=== PATIENT | male | born 1985 | race Caucasian/White ===

== ENCOUNTER 2016-06-10 15:55 | Emergency (ER) | payer OTHER ==
[~2016-06-10] VITALS: Ht 177.8 cm; Wt 103.0 kg
[~2016-06-10 15:55] MED LIST: ADVIN25/60 INH; ALBUAER19 INH
[2016-06-10 15:58] VITALS: Ht 177.8 cm; Wt 103.0 kg
[2016-06-10] MEDS ORDERED: ALBUT/IPRATROP 3MG/0.5MG NEB 3 ML VIAL INH STA (16:08)
[2016-06-10] MEDS ORDERED: DEXAMETHASONE SOD INJ 10 MG/ML VIAL IV ONE (16:15)
[2016-06-10] MEDS ORDERED: TPRSR/25 PO (16:25)
[2016-06-10] MEDS ORDERED: TRAZ100T29 PO (16:25)
[2016-06-10] MEDS ORDERED: VNTHFA/IN INH ×2 (16:26→18:09)
[2016-06-10] MEDS ORDERED: PRZ/40 PO (16:26)
[2016-06-10] MEDS ORDERED: MOME100A INH (16:26)
[2016-06-10] MEDS ORDERED: NRN600 PO (16:26)
[2016-06-10 16:32] LABS: BASO % 0.1 %; BASO ABS # 0.02 K/uL (0-0.2); COMPLETE YES; HEMATOCRIT 37.3 % (42-52); IG% 0.2 %; LYMPH % 10.8 %; LYMPH ABS # 1.57 K/uL (1.2-3.4); MEAN CORPUSCULAR HEMOGLOBIN 29.1 pg (25-34); MEAN CORPUSCULAR HGB CONC 34.6 g/dl (32-36); MEAN PLATELET VOLUME 10.2 fL (7.4-10.4); MONO % 5.7 %; NEUT % 80.2 %; PLATELET COUNT 185 K/uL (130-400); RED BLOOD COUNT 4.44 M/uL (4.7-6.1); WHITE BLOOD COUNT 14.52 K/uL (4.8-10.8)
[2016-06-10] MEDS ORDERED: ACETAMINOPHEN 500 MG TAB PO STA (16:37)
[2016-06-10 16:54] LABS: BUN/CREATININE RATIO 5.8 (10-20); CALCIUM 8.6 mg/dl (8.5-10.1); POTASSIUM 3.7 mmol/L (3.5-5.1)
[2016-06-10 17:35] VITALS: TEMP 37.9
--- NOTE | 2016-06-10 17:59 | DIAGNOSTIC IMAGING REPORT ---
CT ANGIOGRAM OF THE CHEST CLINICAL HISTORY: Cough and dyspnea. COMPARISON STUDY: Chest x-ray dated 05/12/2013. TECHNIQUE: Following the IV administration of 112 cc of Optiray 320, CT angiogram of the chest was performed from the upper abdomen to the thoracic inlet utilizing the pulmonary embolus protocol. Images are reviewed in the axial, sagittal, and coronal planes. 3-D MIPS images are created and assessed. The IV malfunctioned during the contrast injection. CT DOSE: 558.96 mGy.cm FINDINGS: Thyroid: Imaged portions of the thyroid gland are normal in size and attenuation. Thoracic aorta: The thoracic aorta is normal in caliber and demonstrates standard 3-vessel arch anatomy. No dissection is seen. Pulmonary vasculature: The pulmonary trunk is normal in caliber. There are no filling defects identified in main, lobar, or segmental pulmonary branches to suggest pulmonary embolus. Heart: The heart is normal in size and configuration, and without pericardial effusion. Lungs and pleural spaces: There is patchy groundglass consolidation seen throughout both lungs. No pleural effusion is identified. The trachea and central airways are clear. Mediastinum: There are prominent mediastinal lymph nodes. A pretracheal node measures 10 mm in short axis as seen on image #235. Estephania: There is hilar lymphadenopathy. Enlarged hilar nodes measure up to 14 mm in short axis. Axillae: There is no axillary lymphadenopathy. Upper abdomen: Partially visualized upper abdominal viscera is within normal limits. Skeletal structures: No lytic or blastic bony lesions are seen. IMPRESSION: 1. There is no evidence of pulmonary embolus in the main, lobar, or segmental pulmonary arteries. 2. There is patchy groundglass consolidation seen throughout both lungs. The appearance is nonspecific, and likely represents an infectious/inflammatory pneumonitis. Clinical correlation will be required. 3. Hilar adenopathy is likely on a reactive basis. 4. No pleural effusion is identified. Electronically signed by: Austin Bello M.D. 06/10/2016 5:58 PM Dictated Date/Time: 06/10/2016 5:53 PM
[2016-06-10] MEDS ORDERED: OPTIRAY 320 IV PRN (18:00)
[2016-06-10] MEDS ORDERED: METH4PAK PO (18:09)
[2016-06-10] MEDS ORDERED: HYDR5SYP11 PO (18:09)
[2016-06-10] MEDS ORDERED: DOXY100C PO (18:09)
[2016-06-10] MEDS ORDERED: PRT/40 PO (18:14)
--- NOTE | 2016-06-10 18:16 | EMERGENCY ROOM VISIT NOTE ---
History First contact with patient: 15:58 Chief Complaint: CHEST PAIN Stated Complaint: FEVER 103.7, CHEST PAIN, COUGH Nursing Triage Summary: Patient c/o fever, chest pain, and SOB that started Sunday. History of Present Illness The patient is a 31 year old male who presents to the Emergency Room with complaints of cough, wheezing, chest pain and fever. The patient reports that he developed a fever 5 days ago. Within 24 hours, he then started to develop a cough with chest pain. He also had mild diarrhea. The patient reports that his cough has now progressively worsened. The patient does have a history of asthma. The patient did not get the flu shot this year. He denies any other known sick contacts. He denies any history of cardiac disease. He rates his overall discomfort a 5 out of 10. Review of Systems HEENT: Denies dizziness, visual problems, hearing loss, tinnitus. Denies difficulty swallowing or oral lesions. PULMONARY: See history of present illness. CARDIOVASCULAR: Denies palpitations, dyspnea on exertion, orthopnea or peripheral edema. GASTROINTESTINAL: Denies constipation, nausea, vomiting, or abdominal pain. GENITOURINARY: Denies dysuria, frequency, urgency or nocturia. NEUROLOGIC: Denies history of epilepsy, CVA, TIA or chronic headaches. MUSCULOSKELETAL: Denies history of joint tenderness/swelling. SKIN: Denies rashes or lesions. PSYCHIATRIC: Denies history of depression or mental illness. ENDOCRINE: Denies history of diabetes or thyroid disorders. Past Medical/Surgical History Medical Problems: (1) Appendectomy (2) Colitis (3) Crohn's disease (4) Orthopedic surgery Family History Diabetes mellitus Heart disease Social History Smoking Status: Current Every Day Smoker Alcohol Use: none Drug Use: none Marital Status: Housing Status: lives with significant other Occupation Status: employed Current/Historical Medications Scheduled Albuterol Hfa (Ventolin Hfa), 2 PUFFS INH QID Doxycycline Hyclate (Vibramycin), 100 MG PO BID Fluoxetine Hcl (Prozac), 40 MG PO QAM Gabapentin (Gabapentin), 1,200 MG PO TID Methylprednisolone (Medrol Dosepak), 0 PO DAILY Metoprolol Succinate (Metoprolol Succinate ER), 25 MG PO DAILY Mometasone Furoate-Formoterol (Dulera 100/5 Mcg), 2 PUFFS INH BID Pantoprazole (Pantoprazole Sodium), 40 MG PO DAILY Trazodone Hcl (Trazodone), 100 MG PO HS Scheduled PRN Albuterol Hfa (Ventolin Hfa), 2 PUFFS INH Q4H PRN for Shortness of Breath Hydrocodone W/ Homatropine (Hycodan 5/1.5MG 5 Ml), 5-10 ML PO Q4H PRN for Cough Allergies Coded Allergies: Tramadol (Unverified Allergy, Unknown, hives, 12/20/14) Adhesives (Verified Adverse Reaction, Unknown, skin erosion, 12/20/14) Physical Exam Vital Signs Date Time Temp Pulse Resp B/P Pulse Ox O2 Delivery O2 Flow Rate FiO2 06/10/16 18:06 94 23 121/77 95 Room Air 06/10/16 17:35 37.9 100 22 118/72 94 Room Air 06/10/16 16:40 99 Room Air 06/10/16 16:07 107 06/10/16 15:58 38.9 105 32 127/76 97 Room Air Physical Exam CONSTITUTIONAL: Healthy and well nourished. Alert and oriented X 3 with positive affect. Patient has auditory wheezing. HEENT: Normocephalic, atraumatic. Pupils equal, round and reactive. Ears and nares are clear. Nose clear icterus or conjunctival injection/pallor. NECK: Full active range of motion without discomfort. No nuchal rigidity. LYMPHATICS: No cervical chain adenopathy. RESPIRATORY: The patient has diffuse expiratory wheezing in all bojorquez. No obvious crackles, rhonchi or stridor. CARDIOVASCULAR: Tachycardic rhythm with no murmurs, rubs or gallops. GASTROINTESTINAL: Bowel sounds present in all quadrants. Soft and nontender to palpation. MUSCULOSKELETAL: Full range of motion of all joints without discomfort. INTEGUMENTARY: No rash or other significant dermatologic conditions noted. HEMATOLOGIC: No ecchymosis or petechiae noted. NEUROLOGIC: No focal neurologic deficits noted. Medical Decision & Procedures ER Provider Diagnostic Interpretation: My interpretation of an ECG shows a sinus tachycardia of [address] elevation or other conduction abnormalities. Chest CT angiography shows no evidence for pulmonary emboli, pneumothorax or consolidations. A pneumonitis is noted. Radiologist report is as follows: CT ANGIOGRAM OF THE CHEST CLINICAL HISTORY: Cough and dyspnea. COMPARISON STUDY: Chest x-ray dated 05/12/2013. TECHNIQUE: Following the IV administration of 112 cc of Optiray 320, CT angiogram of the chest was performed from the upper abdomen to the thoracic inlet utilizing the pulmonary embolus protocol. Images are reviewed in the axial, sagittal, and coronal planes. 3-D MIPS images are created and assessed. The IV malfunctioned during the contrast injection. CT DOSE: 558.96 mGy.cm FINDINGS: Thyroid: Imaged portions of the thyroid gland are normal in size and attenuation. Thoracic aorta: The thoracic aorta is normal in caliber and demonstrates standard 3-vessel arch anatomy. No dissection is seen. Pulmonary vasculature: The pulmonary trunk is normal in caliber. There are no filling defects identified in main, lobar, or segmental pulmonary branches to suggest pulmonary embolus. Heart: The heart is normal in size and configuration, and without pericardial effusion. Lungs and pleural spaces: There is patchy groundglass consolidation seen throughout both lungs. No pleural effusion is identified. The trachea and central airways are clear. Mediastinum: There are prominent mediastinal lymph nodes. A pretracheal node measures 10 mm in short axis as seen on image #235. Estephania: There is hilar lymphadenopathy. Enlarged hilar nodes measure up to 14 mm in short axis. Axillae: There is no axillary lymphadenopathy. Upper abdomen: Partially visualized upper abdominal viscera is within normal limits. Skeletal structures: No lytic or blastic bony lesions are seen. IMPRESSION: 1. There is no evidence of pulmonary embolus in the main, lobar, or segmental pulmonary arteries. 2. There is patchy groundglass consolidation seen throughout both lungs. The appearance is nonspecific, and likely represents an infectious/inflammatory pneumonitis. Clinical correlation will be required. 3. Hilar adenopathy is likely on a reactive basis. 4. No pleural effusion is identified. Laboratory Results 06/10/16 16:15 Red Blood Count 4.44, Mean Corpuscular Volume 84.0, Mean Corpuscular Hemoglobin 29.1, Mean Corpuscular Hemoglobin Concent 34.6, Mean Platelet Volume 10.2, Neutrophils (%) (Auto) 80.2, Lymphocytes (%) (Auto) 10.8, Monocytes (%) (Auto) 5.7, Eosinophils (%) (Auto) 3.0, Basophils (%) (Auto) 0.1, Neutrophils # (Auto) 11.64, Lymphocytes # (Auto) 1.57, Monocytes # (Auto) 0.83, Eosinophils # (Auto) 0.43, Basophils # (Auto) 0.02 06/10/16 16:15 Test 06/10/16 16:15 06/10/16 16:23 06/10/16 16:30 White Blood Count 14.52 K/uL (4.8-10.8) Red Blood Count 4.44 M/uL (4.7-6.1) Hemoglobin 12.9 g/dL (14.0-18.0) Hematocrit 37.3 % (42-52) Mean Corpuscular Volume 84.0 fL (80-100) Mean Corpuscular Hemoglobin 29.1 pg (25-34) Mean Corpuscular Hemoglobin Concent 34.6 g/dl (32-36) Platelet Count 185 K/uL (130-400) Mean Platelet Volume 10.2 fL (7.4-10.4) Neutrophils (%) (Auto) 80.2 % Lymphocytes (%) (Auto) 10.8 % Monocytes (%) (Auto) 5.7 % Eosinophils (%) (Auto) 3.0 % Basophils (%) (Auto) 0.1 % Neutrophils # (Auto) 11.64 K/uL (1.4-6.5) Lymphocytes # (Auto) 1.57 K/uL (1.2-3.4) Monocytes # (Auto) 0.83 K/uL (0.11-0.59) Eosinophils # (Auto) 0.43 K/uL (0-0.5) Basophils # (Auto) 0.02 K/uL (0-0.2) RDW Standard Deviation 38.9 fL (36.4-46.3) RDW Coefficient of Variation 12.8 % (11.5-14.5) Immature Granulocyte % (Auto) 0.2 % Immature Granulocyte # (Auto) 0.03 K/uL (0.00-0.02) Anion Gap 9.0 mmol/L (3-11) Est Creatinine Clear Calc Drug Dose 126.3 ml/min Estimated GFR () 114.1 Estimated GFR (Non- 98.5 BUN/Creatinine Ratio 5.8 (10-20) Calcium Level 8.6 mg/dl (8.5-10.1) Bedside D-Dimer > 450 ng/mlFEU (0-450) Bedside Troponin I 0.000 ng/ml (0-0.045) Influenza Type A Antigen Neg for Influ A (NEG) Influenza Type B Antigen Neg for Influ B (NEG) The above labs were reviewed. Patient has a white count over 14,000 with left shift and bandemia. Bedside d-dimer was also elevated. Troponin was normal. Influenza screen is negative. Medications Administered Medications (Trade) Dose Ordered Sig/Adeline Route Start Time Stop Time Status Last Admin Dose Admin Albuterol/ Ipratropium (Duoneb) 3 ml NOW STAT INH 06/10/16 16:08 06/10/16 16:10 DC 06/10/16 16:31 3 ML Dexamethasone Sodium Phosphate (Decadron Inj) 10 mg NOW ONCE IV 06/10/16 16:15 06/10/16 16:16 DC 06/10/16 16:31 10 MG Acetaminophen (Tylenol Tab) 1,000 mg NOW STAT PO 06/10/16 16:37 06/10/16 16:38 DC 06/10/16 16:59 1,000 MG Procedure The patient received a unit dose DuoNeb treatment with only mild relief of his symptoms. ED Course Patient history and physical exam were performed. Nurse's notes were reviewed. Vital signs were reviewed. The patient is febrile and tachycardic. He is normotensive. O2 saturation is 97% on room air. IV access was established and labs were drawn. The patient was administered a unit dose DuoNeb treatment with mild relief of his symptoms. ECG shows a sinus tachycardia without any other acute findings. Labs were reviewed to show a moderate lymphocytosis with left shift and bandemia. Influenza screen is negative. D-dimer was elevated. Chest CT angiography was ordered, showing an acute pneumonitis. No evidence for pulmonary emboli, consolidations/infiltrates or pneumothorax. The patient reported feeling well enough to go home. He refused hospitalist evaluation. The patient was provided prescriptions for doxycycline, Medrol Dosepak, albuterol and Hycodan cough syrup. No drinking or driving while taking Hycodan. The patient was instructed to follow-up with his PCP within the next 2 -3 days for reevaluation. Return to the emergency department for any progressively worsening symptoms. The patient was happy with plan of care, and voiced understanding of all discharge instructions. Medical Decision Patient presents to the emergency department with symptoms most consistent with an upper respiratory infection. His CT today does show evidence for pneumonitis. There are no consolidations or infiltrates. Influenza screen is negative. The patient refused hospitalist evaluation. I do feel that the patient is stable enough for outpatient management. ECG and cardiac enzymes were normal. I do not suspect any other infectious etiologies. Impression Primary Impression: Acute pneumonitis Additional Impression: History of asthma Departure Information Prescriptions Hydrocodone W/ Homatropine (HYCODAN 5/1.5MG 5 ML) 1 Syp Syp 5-10 ML PO Q4H Y for Cough, #200 ML Prov: Yonatan Gu PA 06/10/16 Albuterol Hfa (VENTOLIN HFA) 200 Puffs/35860 Mcg Aers 2 PUFFS INH QID, #1 INHALER Prov: Yonatan Gu PA 06/10/16 Methylprednisolone (MEDROL DOSEPAK) 4 Mg Chris 0 PO DAILY, #1 PKT Prov: Yonatan Gu PA 06/10/16 Doxycycline Hyclate (VIBRAMYCIN) 100 Mg Cap 100 MG PO BID for 10 Days, #2020 CAP Prov: Yonatan Gu PA 06/10/16 Referrals No Doctor, Assigned (PCP) Patient Instructions My [facility] Problem Qualifiers
[2016-06-10 18:36] VITALS: BP 121/77; PULSE 94; O2SAT 95
== END 2016-06-10 18:36 | disposition home or self-care (01) ==
LOC: C.EDB 15:56 → C.EDA 18:36
DX: J18.9 Pneumonia, unspecified organism (principal); Z87.09 Personal history of other diseases of the respiratory system; F17.200 Nicotine dependence, unspecified, uncomplicated; K50.90 Crohn's disease, unspecified, without complications

== ENCOUNTER 2016-07-14 12:00 | Emergency (ER) | payer OTHER ==
[~2016-07-14] VITALS: Ht 177.8 cm; Wt 96.0 kg
[~2016-07-14 12:00] MED LIST changes: -ADVIN25/60 INH; -ALBUAER19 INH; +MOME100A INH; +NRN600 PO; +PANT40TA2 PO; +PRZ/40 PO; +TPRSR/25 PO; +TRAZ100T29 PO; +VNTHFA/IN INH
[2016-07-14 12:10] VITALS: TEMP 37.2; Ht 177.8 cm; Wt 96.0 kg
[2016-07-14] MEDS ORDERED: OPTIRAY 320 IV PRN (13:15)
[2016-07-14] MEDS ORDERED: OXYCODONE/ACETAMINOPHEN 5-325 TAB PO ONE (13:30)
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
--- NOTE | 2016-07-14 14:36 | DIAGNOSTIC IMAGING REPORT ---
LEFT SHOULDER 3 VIEWS HISTORY: left shoulder pain COMPARISON: None. FINDINGS: There is no fracture or dislocation. Soft tissues are unremarkable. No radiopaque foreign bodies. The left clavicle is intact. IMPRESSION: No fractures. Electronically signed by: Castro Desir M.D. 07/14/2016 2:34 PM Dictated Date/Time: 07/14/2016 2:28 PM
[2016-07-14 14:56] LABS: URINE APPEARANCE CLEAR (CLEAR); URINE BILIRUBIN NEG (NEG); URINE COLOR YELLOW; URINE NITRITE NEG (NEG); URINE SPECIFIC GRAVITY 1.026 (1.000-1.030); UROBILINOGEN NEG (NEG)
[2016-07-14] MEDS ORDERED: KETOROLAC TROMETHAMINE 30 MG/ML VIAL IV STA ×2 (15:06→15:33)
[2016-07-14 15:07] LABS: MANUAL MICROSCOPIC REQUIRED? NO; REVIEW REQ? NO
[2016-07-14] MEDS ORDERED: KETOROLAC TROMETHAMINE 60 MG/2 ML VIAL IM STA (15:11)
[2016-07-14 15:29] LABS: BENZODIAZEPINE, URINE NEG (NEG); COCAINE,URINE NEG (NEG); PHENCYCLIDINE, URINE NEG (NEG)
[2016-07-14 16:04] VITALS: BP 113/76; PULSE 49; O2SAT 96
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
[2016-07-17 03:11] LABS: METHADONE METABOLITE 1250 NG/ML (CUTOFF=100); METHADONE VERIFIC 439 NG/ML (CUTOFF=100)
== END 2016-07-14 16:05 | disposition home or self-care (01) ==
LOC: EDBD 12:00 → C.EDA 12:02
DX: S16.1XXA Strain of muscle, fascia and tendon at neck level, initial encounter (principal); S00.83XA Contusion of other part of head, initial encounter; V47.0XXA Car driver injured in collision with fixed or stationary object in nontraffic accident, initial encounter; I10 Essential (primary) hypertension; J45.909 Unspecified asthma, uncomplicated; K50.90 Crohn's disease, unspecified, without complications; Z83.3 Family history of diabetes mellitus; F17.210 Nicotine dependence, cigarettes, uncomplicated; Z79.899 Other long term (current) drug therapy

== ENCOUNTER 2017-06-24 15:43 | Emergency (ER) | payer OTHER ==
[~2017-06-24] VITALS: Ht 177.8 cm; Wt 101.2 kg
[~2017-06-24 15:43] MED LIST changes: -MOME100A INH; -NRN600 PO; -PANT40TA2 PO; -PRZ/40 PO; -TRAZ100T29 PO; -VNTHFA/IN INH
[2017-06-24 15:47] VITALS: Ht 177.8 cm; Wt 101.2 kg
[2017-06-24] MEDS ORDERED: SODIUM CHLORIDE 0.9% 1000ML 1,000 ML IV STA (16:10)
[2017-06-24] MEDS ORDERED: LORAZEPAM 0.5 MG TAB SL STA (16:10)
[2017-06-24] MEDS ORDERED: METO-217 PO (16:16)
[2017-06-24] MEDS ORDERED: FLUO20CA36 PO (16:16)
[2017-06-24] MEDS ORDERED: METH10SO PO (16:16)
[2017-06-24] MEDS ORDERED: PANT40TA2 PO (16:16)
[2017-06-24] MEDS ORDERED: TRAZ100T29 PO (16:25)
[2017-06-24] MEDS ORDERED: MOME100A INH (16:26)
[2017-06-24] MEDS ORDERED: NRN600 PO (16:26)
[2017-06-24] MEDS ORDERED: PRZ/40 PO (16:26)
[2017-06-24] MEDS ORDERED: VNTHFA/IN INH (16:26)
--- NOTE | 2017-06-24 16:35 | DIAGNOSTIC IMAGING REPORT ---
CHEST ONE VIEW PORTABLE CLINICAL HISTORY: Atypical chest pain COMPARISON STUDY: 05/12/2013 FINDINGS: The cardiac and mediastinal contours are normal. There is no evidence of focal pulmonary consolidation. There is no evidence of failure. No pleural effusions are visualized.[ IMPRESSION: No active disease in the chest. Electronically signed by: Juliocesar Rangel M.D. 06/24/2017 4:34 PM Dictated Date/Time: 06/24/2017 4:34 PM
[2017-06-24 16:41] LABS: BASO % 0.2 %; BASO ABS # 0.02 K/uL (0-0.2); EOS % 7.8 %; EOS ABS # 0.73 K/uL (0-0.5); HEMOGLOBIN 15.2 g/dL (14.0-18.0); IG# 0.02 K/uL (0.00-0.02); LYMPH % 33.8 %; LYMPH ABS # 3.15 K/uL (1.2-3.4); MEAN CELL VOLUME 86.3 fL (80-100); MEAN CORPUSCULAR HEMOGLOBIN 29.8 pg (25-34); MEAN CORPUSCULAR HGB CONC 34.5 g/dl (32-36); MEAN PLATELET VOLUME 10.8 fL (7.4-10.4); MONO % 5.5 %; MONO ABS # 0.51 K/uL (0.11-0.59); NEUT % 52.5 %; NEUT ABS # 4.88 K/uL (1.4-6.5); PLATELET COUNT 216 K/uL (130-400); RED CELL DISTRIBUTION WIDTH CV 12.3 % (11.5-14.5); RED CELL DISTRIBUTION WIDTH SD 39.2 fL (36.4-46.3); WHITE BLOOD COUNT 9.31 K/uL (4.8-10.8)
--- NOTE | 2017-06-24 16:50 | EMERGENCY ROOM VISIT NOTE ---
History Report prepared by [place]: Vee Gillespie Under the Supervision of: Dr. Pb Lynn M.D. First contact with patient: 16:04 Chief Complaint: CHEST PAIN Stated Complaint: CHEST PAIN Nursing Triage Summary: Pt c/o chest pain since Sunday, pain in center of chest. Flushed and sweaty at work Sunday, arms numb, tingly, SOB and chest pain. Pt states he's on blood thinners for an arrhythmia. Feels fatigued. Pain constant since Sunday but pain increases and decreases at times. History of Present Illness The patient is a 32 year old male who presents to the Emergency Room with complaints of persistent episodes of centralized chest pain that began 2 days ago. He reports that 2 days ago while at work, he began experiencing chest pain , followed by shortness of breath, palpitations, tingling in arms, some chills, lightheadedness, and fatigue. The patient denies any cough, congestion, body aches, pain with urination, nausea, vomiting, or diarrhea. He states a history of similar chest pain episodes, noting that his episodes began about one year ago and he experienced the same symptoms but not as severe.The patient saw a air lift operator, who stated that his Holter monitor report and stress test showed palpitations. His air lift operator prescribed him Metoprolol, noting that he has been taking it for about a year. The patient also notes a history of anxiety, noting that his symptoms do not feel similar to previous panic attacks or episodes of anxiety. He reports that his father has a history of a triple bypass and a recent heart attack, noting that he is 56 years old but also a smoker. The patient also states that his grandfather of a heart attack. He denies any alcohol or drug use, but reports that he smokes everyday. Source of History: patient Onset: 2 days ago Position: chest Symptom Intensity: episodes Quality: other (chest pain) Timing: other (persistent) Associated Symptoms: + chills (soem), + SOB, + fatigue, No cough, No nausea , No vomiting, No diarrhea Note: Associated symptoms include: palpitations, tingling in arms, and lightheadedness. Patient denies: congestion, body aches, or pain with urination, Review of Systems See HPI for pertinent positives and negatives. A total of ten systems were reviewed and were otherwise negative. Past Medical & Surgical Medical Problems: (1) Appendectomy (2) Colitis (3) Crohn's disease (4) Orthopedic surgery Family History Diabetes mellitus Heart disease Social History Smoking Status: Current Every Day Smoker Smokeless Tobacco Use: Unknown Alcohol Use: none Drug Use: none Marital Status: Housing Status: lives with significant other Occupation Status: employed Current/Historical Medications Scheduled Fluoxetine HCl (Fluoxetine HCl), 20 MG PO QAM Fluoxetine Hcl (Prozac), 40 MG PO QAM Gabapentin (Gabapentin), 1,200 MG PO TID Methadone Hcl (Methadone Hcl), 50 MG PO DAILY Metoprolol Succinate (Toprol Xl), 50 MG PO DAILY Pantoprazole (Pantoprazole Sodium), 40 MG PO QAM Trazodone Hcl (Trazodone), 100 MG PO HS Scheduled PRN Albuterol Hfa (Ventolin Hfa), 2 PUFFS INH Q4H PRN for Shortness of Breath Mometasone Furoate-Formoterol (Dulera 100/5 Mcg), 2 PUFFS INH BID PRN for SOB/ Wheezing Allergies Coded Allergies: Tramadol (Unverified Allergy, Unknown, hives, 07/14/16) Adhesives (Verified Adverse Reaction, Unknown, skin erosion, 07/14/16) Physical Exam Vital Signs Date Time Temp Pulse Resp B/P (MAP) Pulse Ox O2 Delivery O2 Flow Rate FiO2 06/24/17 18:03 36.3 54 19 124/78 98 06/24/17 17:43 54 19 98 06/24/17 17:31 124/78 06/24/17 17:13 53 15 97 06/24/17 17:01 125/75 06/24/17 16:57 97 Room Air 06/24/17 16:57 129/77 06/24/17 16:57 54 16 129/77 97 Room Air 06/24/17 16:43 51 18 06/24/17 16:41 50 06/24/17 15:51 98 Room Air 06/24/17 15:47 36.3 62 18 128/82 98 Room Air Physical Exam GENERAL: Awake, alert, anxious-appearing, but in no acute distress HENT: Dry mucous membranes. Normocephalic, atraumatic. Oropharynx unremarkable. EYES: Normal conjunctiva. Sclera non-icteric. NECK: Supple. No nuchal rigidity. FROM. No JVD. RESPIRATORY: Clear to auscultation. CARDIAC: Regular rate, normal rhythm. Extremities warm and well perfused. Pulses equal. ABDOMEN: Soft, non-distended. No tenderness to palpation. No rebound or guarding. No masses. RECTAL: Deferred. MUSCULOSKELETAL: Chest examination reveals no tenderness. The back is symmetrical on inspection without obvious abnormality. There is no CVA tenderness to palpation. No joint edema. LOWER EXTREMITIES: Calves are equal size bilaterally and non-tender. No edema. No discoloration. NEURO: Normal sensorium. No sensory or motor deficits noted. SKIN: No rash or jaundice noted. Medical Decision & Procedures ER Provider Diagnostic Interpretation: X-ray: Per my interpretation, radiologist review. CHEST ONE VIEW PORTABLE CLINICAL HISTORY: Atypical chest pain COMPARISON STUDY: 05/12/2013 FINDINGS: The cardiac and mediastinal contours are normal. There is no evidence of focal pulmonary consolidation. There is no evidence of failure. No pleural effusions are visualized.[ IMPRESSION: No active disease in the chest. Electronically signed by: Juliocesar Rangel M.D. 06/24/2017 4:34 PM Dictated Date/Time: 06/24/2017 4:34 PM Laboratory Results 06/24/17 16:25 Red Blood Count 5.10, Mean Corpuscular Volume 86.3, Mean Corpuscular Hemoglobin 29.8, Mean Corpuscular Hemoglobin Concent 34.5, Mean Platelet Volume 10.8, Neutrophils (%) (Auto) 52.5, Lymphocytes (%) (Auto) 33.8, Monocytes (%) (Auto) 5.5, Eosinophils (%) (Auto) 7.8, Basophils (%) (Auto) 0.2, Neutrophils # (Auto) 4.88, Lymphocytes # (Auto) 3.15, Monocytes # (Auto) 0.51, Eosinophils # (Auto) 0.73, Basophils # (Auto) 0.02 06/24/17 16:25 Test 06/24/17 16:25 White Blood Count 9.31 K/uL (4.8-10.8) Red Blood Count 5.10 M/uL (4.7-6.1) Hemoglobin 15.2 g/dL (14.0-18.0) Hematocrit 44.0 % (42-52) Mean Corpuscular Volume 86.3 fL (80-100) Mean Corpuscular Hemoglobin 29.8 pg (25-34) Mean Corpuscular Hemoglobin Concent 34.5 g/dl (32-36) Platelet Count 216 K/uL (130-400) Mean Platelet Volume 10.8 fL (7.4-10.4) Neutrophils (%) (Auto) 52.5 % Lymphocytes (%) (Auto) 33.8 % Monocytes (%) (Auto) 5.5 % Eosinophils (%) (Auto) 7.8 % Basophils (%) (Auto) 0.2 % Neutrophils # (Auto) 4.88 K/uL (1.4-6.5) Lymphocytes # (Auto) 3.15 K/uL (1.2-3.4) Monocytes # (Auto) 0.51 K/uL (0.11-0.59) Eosinophils # (Auto) 0.73 K/uL (0-0.5) Basophils # (Auto) 0.02 K/uL (0-0.2) RDW Standard Deviation 39.2 fL (36.4-46.3) RDW Coefficient of Variation 12.3 % (11.5-14.5) Immature Granulocyte % (Auto) 0.2 % Immature Granulocyte # (Auto) 0.02 K/uL (0.00-0.02) Anion Gap 6.0 mmol/L (3-11) Est Creatinine Clear Calc Drug Dose 136.4 ml/min Estimated GFR () 127.0 Estimated GFR (Non- 109.6 BUN/Creatinine Ratio 8.4 (10-20) Calcium Level 8.7 mg/dl (8.5-10.1) Magnesium Level 2.0 mg/dl (1.8-2.4) Total Bilirubin 0.3 mg/dl (0.2-1) Direct Bilirubin < 0.1 mg/dl (0-0.2) Aspartate Amino Transf (AST/SGOT) 15 U/L (15-37) Alanine Aminotransferase (ALT/SGPT) 23 U/L (12-78) Alkaline Phosphatase 139 U/L (45-117) Troponin I < 0.015 ng/ml (0-0.045) Total Protein 7.7 gm/dl (6.4-8.2) Albumin 3.7 gm/dl (3.4-5.0) Lipase 120 U/L (73-393) Thyroid Stimulating Hormone (TSH) 1.950 uIu/ml (0.300-4.500) Laboratory results reviewed by me Medications Administered Medications (Trade) Dose Ordered Sig/Adeline Route Start Time Stop Time Status Last Admin Dose Admin Sodium Chloride 1,000 ml @ 999 mls/hr Q1H1M STAT IV 06/24/17 16:10 06/24/17 17:10 DC 06/24/17 16:51 999 MLS/HR Lorazepam (Ativan Tab) 0.5 mg NOW STAT SL 06/24/17 16:10 06/24/17 16:18 DC 06/24/17 16:51 0.5 MG ECG Per My Interpretation Indication: chest pain Rate (beats per minute): 66 Rhythm: sinus rhythm Findings: PVC (frequent), no acute ischemic change, other (normal axis) ED Course 1607: The patient was evaluated in room C2. A complete history and physical exam was performed. 1742: I reevaluated the patient. who was feeling significantly better. Discussed results and discharge instructions: he verbalized understanding and agreement. The patient is ready for discharge. Medical Decision I reviewed the patient's past medical history, medications, and the nursing notes as described above. Differential diagnosis: Etiologies such as cardiac ischemia, aortic dissection, pulmonary embolism, pneumonia, pneumothorax, musculoskeletal, infections, pericarditis, myocarditis , esophageal rupture, gastrointestinal, as well as others were entertained. The patient is a 32-year-old gentleman with a past medical history of palpitations who presents to emergency department with constant chest pain that waxes and wanes since Sunday per hpi. On arrival the patient is anxious appearing but no acute distress, afebrile stable vital signs. He reports that he had been evaluated for this in the past and had a stress test as well as a Holter monitor. We obtained the Holter monitor report which was a 48 hour study that demonstrated rare PACs and occasional PVCs however with multiple patient events recorded that correlated with sinus rhythm without ectopy. A minority of patient events correlated with sinus rhythm with PVCs. Of note, the patient is NOT on a blooder thinner as they initially mistakenly reported, they were referring to his metoprolol. EKG unremarkable. CXR negative. Troponin negative. Labs otherwise unremarkable. Bedside echo negative for pericardial effusion. Grossly normal RV and LV size and function. Heart score 1 , low risk, acs unlikely. PERC negative PE not likely. Not positional, pericarditis not likely. No tearing pain and equal pulses, dissection not likely. Sx most c/w anxiety. Patient counseled on the important of smoking cessation, which will improve current symptoms and help reduce his risk for future medical problems. Findings and plan for follow-up reviewed with patient. Patient agreeable and d/c 'd per discharge instructions. Medication Reconcilliation Current Medication List: was personally reviewed by me Blood Pressure Screening Patient's blood pressure: Normal blood pressure Blood pressure disposition: Did not require urgent referral Impression Primary Impression: Substernal precordial chest pain Additional Impression: Anxiety Scribe Attestation The scribe's documentation has been prepared under my direction and personally reviewed by me in its entirety. I confirm that the note above accurately reflects all work, treatment, procedures, and medical decision making performed by me. Departure Information Dispostion Home / Self-Care Referrals Wood Cline M.D. (PCP) Forms Call Back Authorization, HOME CARE DOCUMENTATION FORM, IMPORTANT VISIT INFORMATION Patient Instructions Anxiety Body Response, ED Chest Pain Atypical Unkn Cause, My [facility] Additional Instructions Please follow up with your primary care physician in the next 1-3 days for re- evaluation. The cause of your symptoms is unclear at this time but is likely related to your history of underlying anxiety. Otherwise, your exam, EKG, chest xray, and lab results did not show signs of an emergent condition at this time. Acetaminophen or ibuprofen for pain and fevers as needed. Drink plenty of fluids to ensure hydration. You should consider smoking cessation as this will improve your overall health. Return to the emergency department for worsening symptoms as described in the accompanying instructions. Problem Qualifiers
[2017-06-24 16:57] VITALS: O2SAT 97
[2017-06-24 17:01] LABS: ALBUMIN 3.7 gm/dl (3.4-5.0); ALT/SGPT 23 U/L (12-78); BLOOD UREA NITROGEN 8 mg/dl (7-18); CALCIUM 8.7 mg/dl (8.5-10.1); CARBON DIOXIDE 29 mmol/L (21-32); CREATININE 0.91 mg/dl (0.60-1.40); GLUCOSE 98 mg/dl (70-99); LIPASE 120 U/L (73-393); POTASSIUM 3.5 mmol/L (3.5-5.1); SODIUM 137 mmol/L (136-145)
[2017-06-24 17:12] LABS: ALKALINE PHOSPHATASE 139 U/L (45-117); AST/SGOT 15 U/L (15-37); TOTAL PROTEIN 7.7 gm/dl (6.4-8.2)
[2017-06-24 18:03] VITALS: BP 124/78; PULSE 54; TEMP 36.3; O2SAT 98
== END 2017-06-24 18:04 | disposition home or self-care (01) ==
LOC: C.EDB 15:44 → C.EDC 18:04
DX: R07.2 Precordial pain (principal); F41.9 Anxiety disorder, unspecified; R06.02 Shortness of breath; R53.83 Other fatigue; K50.90 Crohn's disease, unspecified, without complications; Z79.899 Other long term (current) drug therapy; Z91.048 Other nonmedicinal substance allergy status; Z88.6 Allergy status to analgesic agent; F17.210 Nicotine dependence, cigarettes, uncomplicated; Z82.49 Family history of ischemic heart disease and other diseases of the circulatory system